=== PATIENT | female | born 1965 | race Hispanic/Latino ===

== ENCOUNTER → 2024-07-18 | Outpatient (REF) | payer OTHER ==
[~2024-07-18] MED LIST: IOPAMIDOL 370 MG/ML 100 ML INFUS..BTL INJ ONE
[2024-07-18 16:00] LABS: CREATININE, SERUM 0.81 mg/dL (0.57-1.11)
== END ==
LOC: EDSEX 15:00 → CT 15:17
PROVIDERS: ATTEND Nurse Practitioner Family
DX: R10.33 Periumbilical pain (principal); D64.9 Anemia, unspecified
CPT/HCPCS: 36415; 74177; 82565; 84520; Q9967